=== PATIENT | female | born 1990 | race Caucasian/White ===

== ENCOUNTER 2018-12-05 12:23 | Emergency (ER) | payer MEDICAID ==
[~2018-12-05] VITALS: Ht 167.6 cm; Wt 129.0 kg
[2018-12-05] MEDS ORDERED: LIDOCAINE 1%/EPI 1:200,000/PF 10 ML VIAL INJ ONE (12:45)
[2018-12-05 13:30] LABS: BASOPHILS % (AUTO) 0.4 % (0.0-2.0); EOSINOPHILS % (AUTO) 1.7 % (1.0-6.0); HEMATOCRIT 36.2 % (36-46); HEMOGLOBIN 11.9 g/dL (12.0-16.0); LYMPHOCYTES # (AUTO) 1.6 K/uL (1.0-4.8); LYMPHOCYTES % (AUTO) 13.5 % (22.0-44.0); MEAN CORPUSCULAR HEMOGLOBIN 30.1 pg (26.0-34.0); MEAN CORPUSCULAR HGB CONC 32.9 G/dL (31.0-37.0); MEAN CORPUSCULAR VOLUME 91 fL (80-100); MONOCYTES # (AUTO) 0.7 K/uL (0.1-1.0); MONOCYTES % (AUTO) 6.1 % (2.0-9.0); NEUTROPHILS # (AUTO) 9.2 K/uL (1.8-7.7); NEUTROPHILS % (AUTO) 78.3 % (40.0-70.0); PLATELET COUNT (AUTO) 213 K/uL (150-450); RED BLOOD CELL COUNT(AUTO) 3.96 MIL/uL (4.00-5.20)
[2018-12-05] MEDS ORDERED: ACETAMINOPHEN 325 MG TABLET PO ONE (16:45)
[2018-12-05 17:14] VITALS: BP 127/75
== END 2018-12-05 17:24 | disposition home or self-care (01) ==
LOC: EMS 12:25
DX: O23.592 Infection of other part of genital tract in pregnancy, second trimester (principal); O20.8 Other hemorrhage in early pregnancy; Z3A.17 17 weeks gestation of pregnancy
CPT/HCPCS: 36415; 56420; 76801; 76817; 84702; 85025; 86901; 87070; 87205; 99284; J3490

== ENCOUNTER 2018-12-09 09:37 | Emergency (ER) | payer MEDICAID ==
[~2018-12-09] VITALS: Ht 167.6 cm; Wt 127.3 kg
[2018-12-09] MEDS ORDERED: ANTIBIOTIC PO (09:42)
[2018-12-09 09:58] VITALS: BP 109/66
== END 2018-12-09 10:35 | disposition home or self-care (01) ==
LOC: EMS 09:37
DX: O23.592 Infection of other part of genital tract in pregnancy, second trimester (principal); Z3A.17 17 weeks gestation of pregnancy

== ENCOUNTER 2022-12-25 19:58 | Emergency (ER) | payer MEDICAID ==
[~2022-12-25] VITALS: Ht 167.6 cm; Wt 85.9 kg
[~2022-12-25 19:58] MED LIST: ANTIBIOTIC PO
[2022-12-25 20:03] VITALS: BP 131/74
== END 2022-12-25 21:15 | disposition home or self-care (01) ==
LOC: EMS 19:59
DX: S92.352A Displaced fracture of fifth metatarsal bone, left foot, initial encounter for closed fracture (principal); X58.XXXA Exposure to other specified factors, initial encounter; Y93.89 Activity, other specified; Y92.89 Other specified places as the place of occurrence of the external cause; Y99.8 Other external cause status
CPT/HCPCS: 99283